=== PATIENT | female | born 1955 ===

== ENCOUNTER 2017-02-09 18:38 | Emergency (ER) | payer BC ==
[2017-02-09] MEDS ORDERED: ONDANSETRON ODT 4 MG TAB.RAPDIS ONE (19:24)
[2017-02-09] MEDS ORDERED: ACETAMINOPHEN 325 MG TABLET PO ONE (19:56)
--- NOTE | 2017-02-09 20:13 | CT REPORT ---
HISTORY: Trauma. COMPARISON: None. TECHNIQUE: Dose reduction technique was utilized. Axial non-contrasted images obtained from skull vertex throug h foramen magnum. Coronal reconstructions. FINDINGS: The ventricles, sulci, and cisterns are normal in size, shape, and position. The brain parenchyma is normal in attenuation. No CT evidence of acute infarction. No evidence of acute intracranial hemor rhage. No intracranial mass. The orbits appear unremarkable. The visualized paranasal sinuses and mastoid air cells appear clear. Calvarium is intact. IMPRESSION: No acute intracranial abnormality. Final Electronic Signature: This report was electronically signed by Alexandr Benites MD on 02/09/2017 8: 11 PM. lizz /
--- NOTE | 2017-02-09 20:55 | ER PHYSICIAN DOCUMENTATION ---
Physician Documentation [facility] Name:Jaz Bob Age:61 yrs Sex:Female :1955 Arrival Date:02/09/2017 Time:18:38 Bed1 Private MD: Curly Rubio Disposition: 02/09/17 20:40 Discharged to Home/Self Care. Impression: Concussion with unspecified duration LOC. - Condition is Good. - Discharge Instructions: Brain Concussion - CONCUSSION, No Wake Up. - Medical Reconciliation form form. - Follow up: Private Physician; When: 7 - 10 days; Reason: Recheck today's complaints, Continuance of care. - Problem is new. - Symptoms have improved. - Notes: Drink at least two quarts of water every day to stay hydrated. Take Tylenol 500mg by mouth every 6 hours as needed for headache No activities where you could fall and hit your head again for 10 days. Take Zofran 4mg under your tongue every 6 hours as needed for nausea. HPI: 02/09 19:00 This 61 yrs old Unknown Female presents to ER via Private Vehicle with complaints of cd Head Injury-Adult. 19:00 The patient or guardian reports injury, swelling, tenderness, contusion. The complaints cd affect the outer aspect of right eyebrow and right supraorbital ridge. Context of injury: The problem was sustained outdoors, resulted from a fall, while walking. Onset: The symptom(s)/episode began/occurred acutely, today. Associated signs and symptoms: Loss of consciousness: This patient did not experience any loss of consciousness. Pertinent positives: dazed, headache, nausea, Pertinent negatives: neck pain, seizure, vomiting, generalized weakness. Severity of symptoms: At their worst the symptoms were moderate, in the emergency department the symptoms are unchanged. Intracranial bleed risk factors: age over 60. Historical: - Allergies: lou; - Home Meds: 1. Levoxyl Oral 2. Symbicort inhl - PMHx: HYPOTHYROIDISM; ASTHMA; - Tetanus: < 10 years. - Ebola Screening: : Patient denies exposure to infectious person. Patient denies travel to an Ebola-affected area in the 21 days before illness onset. . - Immunization history: Flu Vaccine < 1 year. - Social history: Smoking status: Patient states former smoker of tobacco. Patient uses alcohol occasionally. Patient/guardian denies using marijuana. ROS: 19:00 Constitutional: Positive for poor PO intake, Negative for chills, fever. cd 19:00 Eyes: Negative for visual disturbance, vision loss. 19:00 ENT: Negative for injury or acute deformity. 19:00 Neck: Negative for pain with movement, pain at rest, stiffness. 19:00 Cardiovascular: Negative for chest pain, palpitations. 19:00 Respiratory: Negative for shortness of breath. 19:00 Neuro: Positive for headache, Negative for altered mental status, dizziness, loss of consciousness, seizure activity, syncope, visual changes. 19:00 All other systems are negative. Exam: 19:00 Head/face: Noted is contusion, that is deep, of the right supraorbital ridge and outer cd aspect of right eyebrow, Basilar skull fracture findings: the patient does not have obvious signs of a basilar skull fracture, no Rollins signs, no hemotympanum, no nasal drainage, no racoon eyes, Sinus tenderness, is not appreciated. 19:00 Eyes: Pupils: equal, round, and reactive to light and accomodation. 19:00 ENT: Exam is negative for acute changes. 19:00 Neck: ROM/movement: is normal, is supple. 19:00 Neuro: Orientation: is normal, to person, place & time. Mentation: is normal, Memory: is normal, Cranial nerves: CN II- XII are normal as tested, Motor: is normal, Sensation: is normal, Gait: is steady, Deep tendon reflexes are normal. Vital Signs: 18:51 BP 121 / 71; Pulse 69; Resp 20; Temp 98.4; Pulse Ox 97% on R/A; Pain 5/10; st Alex Coma Score: 18:46 Eye Response: spontaneous(4). Verbal Response: oriented(5). Motor Response: obeys st commands(6). Total: 15. 19:00 Eye Response: spontaneous(4). Verbal Response: oriented(5). Motor Response: obeys cd commands(6). Total: 15. 19:00 Eye Response: spontaneous(4). Verbal Response: oriented(5). Motor Response: obeys cd commands(6). Total: 15. 20:30 Eye Response: spontaneous(4). Verbal Response: oriented(5). Motor Response: obeys cd commands(6). Total: 15. Trauma Score (Adult): 18:52 Eye Response: spontaneous(1); Verbal Response: oriented(1); Motor Response: obeys st commands(2); Systolic BP: > 89 mm Hg(4); Respiratory Rate: 10 to 29 per min(4); Alex Score: 15; Trauma Score: 12 MDM: 19:15 Differential diagnosis: Contusion of Hematoma on Intracranial bleed- Concussion cd cerebral contusion. Data interpreted: Pulse oximetry:. 19:39 Patient medically screened. cd 20:30 Neurological re-evaluation: normal neurological exam including cranial nerves, cd orientation, mentation, motor and sensory exam, cerebellar testing, GCS normal, and normal gait. 20:35 Data reviewed: vital signs, old medical records, radiologic studies, CT scan, and as a cd result, I will discharge patient. Response to treatment: the patient's symptoms have markedly improved after treatment, the patient's condition has returned to base line, and as a result, I will discharge patient. 02/09 20:14 Order name: CAT SCAN; HEAD W/O CON [id number]; Complete Time: 10:16 EDMS 02/11 10:16 Interpretation: Normal. cd Dispensed Medications: 19:18 Drug: Zofran 4 mg; Route: PO; bw2 20:09 Follow up: Response: No adverse reaction bw2 19:43 Drug: Acetaminophen 650 mg; Route: PO; bw2 20:10 Follow up: Response: No adverse reaction bw2 20:49 Drug: Zofran 1 tablet; Route: PO; bw2 20:49 Follow up: Response: Pharmacy closed - take home med pack bw2 Signatures: Susan Yanes RN RN st Daley, Chris, MD MD cd Hofsess, Rachel Angela Rodriguez bw2
--- NOTE | 2017-02-09 20:55 | ER NURSING DOCUMENTATION ---
Nurse's Notes [facility] Name:Jaz Bob Age:61 yrs Sex:Female :1955 Arrival Date:02/09/2017 Time:18:38 Bed1 Private MD: Diagnosis:Concussion with unspecified duration LOC Presentation: 02/09 18:40 Acuity: MCKENNA 4 rh 18:46 Presenting complaint: Patient states: pt tripped and fell while hiking and hit the st right side of her head. pt has felt nauseated since pt denies and vision changes or LOC. Transition of care: patient was not received from another setting of care. Mechanism of Injury: resulted from a fall, from a standing position. 18:46 Method Of Arrival: Private Vehicle st 18:53 Care prior to arrival: pt has had ice on it. st Triage Assessment: 18:50 General: Appears in no apparent distress, Behavior is cooperative. Pain: Complains of st pain in right druze Pain currently is 5 out of 10 on a pain scale. Pain began 2 hours ago. EENT: No deficits noted. Denies any vision changes. . Neuro: Level of Consciousness is awake, alert, Oriented to person, place, time, event, Site Auditor are equal bilaterally Moves all extremities. Reports nausea. Cardiovascular: No deficits noted. Respiratory: No deficits noted. Historical: - Allergies: lou; - Home Meds: 1. Levoxyl Oral 2. Symbicort inhl - PMHx: HYPOTHYROIDISM; ASTHMA; - Tetanus: < 10 years. - Ebola Screening: : Patient denies exposure to infectious person. Patient denies travel to an Ebola-affected area in the 21 days before illness onset. . - Immunization history: Flu Vaccine < 1 year. - Social history: Smoking status: Patient states former smoker of tobacco. Patient uses alcohol occasionally. Patient/guardian denies using marijuana. Screenin:52 Infectious Disease Risk None. Abuse screen: Denies threats or abuse. Denies injuries st from another. pt feels safe at home. Nutritional screening: No deficits noted. Vital Signs: 18:51 BP 121 / 71; Pulse 69; Resp 20; Temp 98.4; Pulse Ox 97% on R/A; Pain 5/10; st Alex Coma Score: 18:46 Eye Response: spontaneous(4). Verbal Response: oriented(5). Motor Response: obeys st commands(6). Total: 15. 19:00 Eye Response: spontaneous(4). Verbal Response: oriented(5). Motor Response: obeys cd commands(6). Total: 15. 19:00 Eye Response: spontaneous(4). Verbal Response: oriented(5). Motor Response: obeys cd commands(6). Total: 15. 20:30 Eye Response: spontaneous(4). Verbal Response: oriented(5). Motor Response: obeys cd commands(6). Total: 15. Trauma Score (Adult): 18:52 Eye Response: spontaneous(1); Verbal Response: oriented(1); Motor Response: obeys st commands(2); Systolic BP: > 89 mm Hg(4); Respiratory Rate: 10 to 29 per min(4); Alex Score: 15; Trauma Score: 12 ED Course: 18:39 Patient arrived in ED. dp 18:40 Susan Yanes RN is Primary Nurse. st 18:40 Triage completed. rh 18:53 [facility] Remains with patient. st 19:39 Curly Ragsdale MD is Attending Physician. cd 20:[address] becky 20:02 Patient moved back from [address] becky Administered Medications: 19:18 Drug: Zofran 4 mg; Route: PO; bw2 20:09 Follow up: Response: No adverse reaction bw2 19:43 Drug: Acetaminophen 650 mg; Route: PO; bw2 20:10 Follow up: Response: No adverse reaction bw2 20:49 Drug: Zofran 1 tablet; Route: PO; bw2 20:49 Follow up: Response: Pharmacy closed - take home med pack bw2 Outcome: 20:40 Discharge ordered by . smith 20:54 Discharged to home ambulatory, with significant other. bw2 20:54 Condition: good 20:54 Discharge Assessment: Patient awake, alert and oriented x 3. No cognitive and/or functional deficits noted. Patient verbalized understanding of disposition instructions. 20:54 Discharge instructions given to patient, significant other, Instructed on discharge instructions, follow up and referral plans. medication usage, Demonstrated understanding of instructions, medications, Prescriptions given X 1. 20:54 Patient left the ED. bw2 Signatures: Susan Yanes RN RN st Daley, Chris, MD MD cd Abbott, Laura lea Hofsess, Rachel rh Wisely Angela bw2 Aleyda Ren dp
[2017-02-09] MEDS ORDERED: ONDANSETRON ODT PREPAC 4 MG TAB.RAPDIS PO ONE (21:00)
== END 2017-02-09 20:55 | disposition home or self-care (01) ==
LOC: ER 18:38
DX: S06.0X0A Concussion without loss of consciousness, initial encounter (principal); S00.11XA Contusion of right eyelid and periocular area, initial encounter; R11.0 Nausea; W18.30XA Fall on same level, unspecified, initial encounter; Y92.89 Other specified places as the place of occurrence of the external cause; Y93.01 Activity, walking, marching and hiking; Z79.899 Other long term (current) drug therapy
CPT/HCPCS: 70450; 99284